=== PATIENT | male | born 1930 | race Caucasian/White ===

== ENCOUNTER 2017-01-17 11:25 | Emergency (ER) | payer MEDICARE ==
[2017-01-17] MEDS ORDERED: ASPIRIN 81 MG TABLET, CHEWABLE PO ONE (11:28)
[2017-01-17 11:44] LABS: ABSOLUTE EOSINOPHILS # (AUTO) 0.2 10^3/uL (0.0-0.6); ABSOLUTE LYMPHOCYTES (AUTO) 0.3 10^3/uL (0.5-4.7); ABSOLUTE MONOCYTES (AUTO) 0.3 10^3/uL (0.1-1.4); ABSOLUTE NEUT (AUTO) 2.4 10^3/uL (1.7-8.2); BASOPHILS % (AUTO) 0.5 % (0-2); EOSINOPHILS % (AUTO) 5.1 % (0-6); HEMATOCRIT 30.1 % (37.9-51.0); HEMOGLOBIN 10.3 g/dL (13.5-17.0); HGB HCT DIFFERENCE 0.8; LYMPHOCYTES % (AUTO) 9.5 % (13-45); MEAN CORPUSCULAR HEMOGLOBIN 30.9 pg (27.0-33.4); MEAN CORPUSCULAR HGB CONC 34.1 g/dL (32.0-36.0); MEAN CORPUSCULAR VOLUME 90 fl (80-97); MONOCYTES % (AUTO) 10.4 % (3-13); RED BLOOD COUNT 3.33 10^6/uL (4.35-5.55); RED CELL DISTRIBUTION WIDTH 15.6 % (11.5-14.0); SEGMENTED NEUTROPHILS % (AUTO) 74.5 % (42-78); WHITE BLOOD COUNT 3.2 10^3/uL (4.0-10.5)
[2017-01-17 11:54] LABS: ALANINE AMINOTRANSFERASE 20 U/L (21-72); ALKALINE PHOSPHATASE 114 U/L (38-126); ANION GAP 10 (5-19); ASPARTATE AMINO TRANSFERASE 16 U/L (17-59); BILIRUBIN,DIRECT 0.3 mg/dL (0.0-0.4); BILIRUBIN,TOTAL 0.3 mg/dL (0.2-1.3); BLOOD UREA NITROGEN 17 mg/dL (7-20); CALCIUM 7.7 mg/dL (8.4-10.2); CARBON DIOXIDE 23 mmol/L (22-30); CHLORIDE 107 mmol/L (98-107); CREATINE KINASE 28 U/L (55-170); CREATININE RESULT 1.06 mg/dL (0.52-1.25); GLUCOSE 157 mg/dL (75-110); POTASSIUM 3.9 mmol/L (3.6-5.0); SODIUM 140.3 mmol/L (137-145); TOTAL PROTEIN 5.6 g/dL (6.3-8.2)
--- NOTE | 2017-01-17 12:01 | RADIOLOGY REPORT (SQ) ---
EXAM DESCRIPTION: CHEST SINGLE VIEW COMPLETED DATE/TIME: 01/17/2017 11:51 am REASON FOR STUDY: cp COMPARISON: None. EXAM PARAMETERS: NUMBER OF VIEWS: One view. TECHNIQUE: Single frontal radiographic view of the chest acquired. RADIATION DOSE: NA LIMITATIONS: None. FINDINGS: LUNGS AND PLEURA: No opacities, masses or pneumothorax. No pleural effusion. MEDIASTINUM AND HILAR STRUCTURES: No masses. Contour normal. HEART AND VASCULAR STRUCTURES: Heart normal in size. Normal vasculature. BONES: No acute findings. HARDWARE: None in the chest. OTHER: No other significant finding. IMPRESSION: NO ACUTE RADIOGRAPHIC FINDING IN THE CHEST. TECHNICAL DOCUMENTATION: JOB ID: [id number]
[2017-01-17 12:06] LABS: CREATINE KINASE MB 0.46 ng/mL (<4.55); TROPONIN I < 0.012 ng/mL
[2017-01-17 14:28] VITALS: BP 155/52
--- NOTE | 2017-01-17 15:06 | ER Document Report ---
ED General - General Chief Complaint: Chest Pain Stated Complaint: CHEST PAIN Time Seen by Provider: 01/17/17 11:45 - HPI Patient complains to provider of: Chest pain Notes: Patient coming in for diffuse chest pain lasting for approximately 3 minutes associated with shortness of breath just prior to arrival. 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 Patient denies any recent travel in the last 3 months. Patient currently is asymptomatic. Patient denies fevers chills nausea vomiting diarrhea denies any cardiac history denies any cardiac testing denies stress test catheterization. - Related Data Allergies/Adverse Reactions: No Known Allergies Allergy (Verified 01/17/17 11:38) Home Medications: Current Home Medications Aspirin 81 mg PO DAILY 01/17/17 [History] Atorvastatin Calcium 40 mg PO DAILY 01/17/17 [History] Cetirizine HCl [Aller-Nestor] 1 tab PO BID 01/17/17 [History] Levothyroxine Sodium [Synthroid 0.025 mg Tablet] 0.025 mg PO DAILY 01/17/17 [ History] Lorazepam 1 mg PO DAILY 01/17/17 [History] Metoprolol Succinate 25 mg PO DAILY 01/17/17 [History] Olmesartan Medoxomil [Benicar] 5 mg PO DAILY 01/17/17 [History] Phenobarbital 100 mg PO BID 01/17/17 [History] Past Medical History - Social History Smoking Status: Never Smoker Frequency of alcohol use: None Drug Abuse: None Family History: Reviewed & Not Pertinent - Past Medical History Cardiac Medical History: Reports: Hx Hypercholesterolemia, Hx Hypertension Past Surgical History: Reports: Hx Appendectomy Review of Systems - Review of Systems Constitutional: No symptoms reported EENT: No symptoms reported Cardiovascular: Chest pain Respiratory: No symptoms reported Gastrointestinal: No symptoms reported Genitourinary: No symptoms reported Male Genitourinary: No symptoms reported Musculoskeletal: No symptoms reported Skin: No symptoms reported Hematologic/Lymphatic: No symptoms reported Neurological/Psychological: No symptoms reported Physical Exam - Vital signs Vitals: Temp Resp 97.8 F 18 01/17/17 11:30 01/17/17 11:30 Interpretation: Normal - General General appearance: Appears well, Alert - HEENT Head: Normocephalic, Atraumatic Eyes: Normal Pupils: PERRL - Respiratory Respiratory status: No respiratory distress Chest status: Nontender Breath sounds: Normal Chest palpation: Normal - Cardiovascular Rhythm: Regular Heart sounds: Normal auscultation Murmur: No - Abdominal Inspection: Normal Distension: No distension Bowel sounds: Normal Tenderness: Nontender Organomegaly: No organomegaly - Back Back: Normal, Nontender - Extremities General upper extremity: Normal inspection, Nontender, Normal color General lower extremity: Normal inspection, Nontender, Normal color - Neurological Neuro grossly intact: Yes Cognition: Normal [place] Coma Scale Eye Opening: Spontaneous [place] Coma Scale Verbal: Oriented [place] Coma Scale Motor: Obeys Commands [place] Coma Scale Total: 15 Sensory: Normal - Psychological Associated symptoms: Normal affect, Normal mood - Skin Skin Temperature: Warm Skin Moisture: Dry Skin Color: Normal Course - Re-evaluation Re-evalutation: 01/17/17 15:45 The patient has decided not to proceed with further recommended testing or treatment to determine the cause of their symptoms. The risks and alternatives to the recommendation were discussed and the patient voiced understanding. The patient appears clinically to have capacity to make this decision. The patient was instructed that he/she could return to the ER at any time to complete the testing or treatment.. Notified by nursing staff patient was becoming agitated multiple attempts to contact the patient's primary care physician Dr. Kee were not responding to no call back. Did discuss with patient does try to contact his PCP for further guidance on his management patient stating that he does not want to wait for his second troponin request leave now. Explained patient leaving prior to workup done to result in disability and patient is understanding patient was signed out AGAINST MEDICAL ADVICE - Vital Signs Vital signs: Temp Pulse Resp BP Pulse Ox 97.8 F 20 96 01/17/17 11:30 01/17/17 13:00 01/17/17 13:00 - Laboratory Result Diagrams: 01/17/17 11:30 01/17/17 11:30 Laboratory results interpreted by me: 01/17/17 01/17/17 11:30 11:30 WBC 3.2 L RBC 3.33 L Hgb 10.3 L Hct 30.1 L RDW 15.6 H Plt Count 107 L Lymphocytes % 9.5 L Absolute Lymphocytes 0.3 L Glucose 157 H Calcium 7.7 L AST 16 L ALT 20 L Creatine Kinase 28 L Total Protein 5.6 L Albumin 3.0 L Discharge - Discharge Clinical Impression: Chest pain Qualifiers: Chest pain type: unspecified Qualified Code(s): R07.9 - Chest pain, unspecified Condition: Good Disposition: AGAINST MEDICAL ADVICE Instructions: Chest Pain of Unclear Cause ([facility]) Additional Instructions: Your first troponin returned negative for any signs of heart damage. Would recommend this time that she wait for a second test and also for me to contact her primary care physician. You are at risk for having coronary artery disease as that you have already had strokes. At this time we have decided not to stay for your testing. He has decided to sign out AGAINST MEDICAL ADVICE. He understands this could result in disability and/or . Your free to come back to the ER any time to complete this workup. I highly recommend follow-up with your primary care physician for further evaluation Referrals: MINERVA KEE MD [Primary Care Provider] - Follow up as needed
--- NOTE | 2017-01-17 17:00 | EKG REPORT ---
SEVERITY:- NORMAL ECG - SINUS RHYTHM : Confirmed by: Danial Pina MD 17-Jan-2017 16:58:42
== END 2017-01-17 14:33 | disposition left against medical advice (07) ==
LOC: ER 11:25
DX: R07.9 Chest pain, unspecified (principal); R06.02 Shortness of breath; I10 Essential (primary) hypertension; R45.1 Restlessness and agitation; Z86.73 Personal history of transient ischemic attack (TIA), and cerebral infarction without residual deficits; Z53.29 Procedure and treatment not carried out because of patient's decision for other reasons
CPT/HCPCS: 93005; 99285; 36415; 82553; 82550; 85025; 80053; 84484; 71010; 93010; A9270